=== PATIENT | male | born 1980 | race African-American/Black ===

== ENCOUNTER 2022-07-26 09:46 | Emergency (ER) | payer MEDICARE, OTHER ==
[~2022-07-26] VITALS: Ht 175.3 cm; Wt 79.0 kg
[~2022-07-26 09:46] MED LIST: ARIP20TA2; SERT100T
[2022-07-26 09:53] VITALS: BP 146/100
[2022-07-26 11:40] LABS: EOSINOPHILS % 4.9 % (0.0-5.0); HEMATOCRIT. 46.5 % (42.0-52.0); HEMOGLOBIN. 15.5 g/dL (14.0-18.0); LYMPHOCYTES % 27.9 % (20.0-50.0); MEAN CORPUSCULAR HEMOGLOBIN 27.4 pg (28.0-32.0); MEAN PLATELET VOLUME 8.2 fl (7.4-10.4); NEUTROPHILS % 59.2 % (40.0-76.0); PLATELET 213 x1000/uL (130-400); RED BLOOD CELL COUNT 5.67 mill/uL (4.7-6.1); RED CELL DISTRIBUTION WIDTH 14.8 % (11.6-14.6)
[2022-07-26 11:45] LABS: PROTHROMBIN TIME 11.1 sec (9.6-11.0)
[2022-07-26 11:47] LABS: CHLORIDE 104 mEq/L (98-107)
[2022-07-26] MEDS ORDERED: DOXY150T5 MT ×2 (12:11)
[2022-07-26] MEDS ORDERED: MED4 MT ×3 (12:11→12:23)
[2022-07-26] MEDS ORDERED: DOXY100C5 MT ×2 (12:15→12:23)
== END 2022-07-26 12:31 | disposition home or self-care (01) ==
LOC: ER 09:46
DX: I10 Essential (primary) hypertension (principal); E11.9 Type 2 diabetes mellitus without complications; R21 Rash and other nonspecific skin eruption
CPT/HCPCS: 36415; 71045; 80053; 85025; 99284